=== PATIENT | male | born 1975 | race Caucasian/White ===

== ENCOUNTER 2018-11-28 08:56 | Emergency (ER) | payer OTHER ==
[2018-11-28] MEDS ORDERED: BABY ASPIRIN 81 MG CHEW PO ONE (09:10)
--- NOTE | 2018-11-28 09:17 | ERPHSYRPT ---
- History of Present Illness Time Seen by Provider: 11/28/18 09:12 Historian: patient Exam Limitations: no limitations Physician History: 43-year-old white male with history of high blood pressure Patient arrives with complaint of pain in his left upper chest symptoms off and on for a week not associated with shortness of breath no nausea did have some abdominal pain in the past no fevers no coughs. Pain is been intermittent for a week no pain today. Patient had had chest pain with syncope in the past approximately 2011 he had a normal cardiac catheter a normal tilt table's. Past medical history includes high blood pressure. Patient apparently with a very strong family history of cardiac problems. Past surgical history includes skin grafts on his left and ankle. Social history former tobacco use denies alcohol or illicit drug use. Timing/Duration: week(s) (1 week) Activities at Onset: none Quality: dullness Location: other (left upper chest Near shoulder) Chest Pain Radiation: no radiation Severity of Pain-Max: moderate Severity of Pain-Current: none Modifying Factors: Worsens With: antacids, breathing, coughing, defecating, eating, exertion, lying down, morphine, movement, nitroglycerin, oxygen, palpation, rest, aspirin, sitting up, change in position Associated Symptoms: abdominal pain (Some belly pain in the past), No nausea, No vomiting, No palpitations, No heartburn, No shortness of breath, No cough, No hurts to breathe, No diaphoresis, No chills, No fever, No fatigue, No weakness, No swelling/lump in chest, No syncope, No rash, No headache, No dizziness, No edema, No back pain Prior Chest Pain/Cardiac Workup: cardiac cath (Normal cardiac catheterization 2011) Nitro Today/Relief: no nitro taken today Aspirin Treatment Today: 81 mg x 4, provided by ED Allergies/Adverse Reactions: No Known Drug Allergies Allergy (Verified 11/28/18 09:24) Home Medications: No Reportable Medications [No Reported Medications] 11/28/18 [History] Hx Influenza Vaccination/Date Given: No Hx Pneumococcal Vaccination/Date Given: No - Review of Systems Constitutional: No Fever, No Chills Eyes: No Symptoms Ears, Nose, & Throat: No Symptoms Respiratory: No Cough, No Dyspnea Cardiac: Chest Pain (left upper chest pain), No Edema, No Palpitations, No Syncope, No Orthopnea, No PND Abdominal/Gastrointestinal: Abdominal Pain (abdominal pain some time during the last week, none now), No Nausea, No Vomiting, No Diarrhea, No Constipation, No Hematemesis, No Hematochezia ( FAR), No Melena, No Dysphagia, No Appetite Changes Genitourinary Symptoms: No Dysuria Musculoskeletal: No Back Pain, No Neck Pain Skin: No Rash Neurological: No Dizziness, No Focal Weakness, No Sensory Changes Psychological: No Symptoms (O no are all were note) Endocrine: No Symptoms (what I have to do my merlene) Immunological/Allergic: No Symptoms All Other Systems: Reviewed and Negative (physical have enough by ) - Past Medical History Pertinent Past Medical History: Yes Neurological History: Other Cardiac History: Hypertension Other Medical History: pt stated has passed out before when he was a child. pt stated it was very hot at that time. - Past Surgical History Past Surgical History: Yes Other Surgical History: skin graft to left ankle - Social History Smoking Status: Current every day smoker How long have you smoked: 20 Y Exposure to second hand smoke: Yes Drug Use: none Patient Lives Alone: No - Nursing Vital Signs Nursing Vital Signs: Initial Vital Signs Temperature 98.3 F 11/28/18 09:03 Pulse Rate 69 11/28/18 09:03 Respiratory Rate 16 11/28/18 09:03 Blood Pressure 155/101 11/28/18 09:03 O2 Sat by Pulse Oximetry 99 11/28/18 09:03 Pain Scale Pain Intensity 0 - Physical Exam General Appearance: no apparent distress, alert Eye Exam: PERRL/EOMI, eyes nml inspection Ears, Nose, Throat Exam: normal ENT inspection, moist mucous membranes Neck Exam: normal inspection, non-tender, supple, full range of motion Respiratory Exam: normal breath sounds, lungs clear, No respiratory distress Cardiovascular Exam: regular rate/rhythm, normal heart sounds, capillary refill <2 sec Gastrointestinal/Abdomen Exam: soft, No tenderness, No mass Back Exam: normal inspection, No CVA tenderness, No vertebral tenderness Extremity Exam: normal inspection, normal range of motion Neurologic Exam: alert, oriented x 3, cooperative, science interpreter II-XII nml as tested, normal mood/affect, sensation nml, No motor deficits Skin Exam: normal color, warm, dry SpO2 Interpretation: normal - Course Nursing assessment & vital signs reviewed: Yes EKG Interpreted by Me: RATE (68 bpm), Sinus Rhythm, NORMAL AXIS, Other (EKG: Sinus rhythm, 68 bpm, normal axis, no acute ST or T wave changes, no acute changes as compared to April 06, 2012) - Radiology Exams Chest X-ray Interpretation: Discussed w/ radiologist (stable, non acute chest) Ordered Tests: Active Orders 24 hr Category Date Time Status Personnel Counselor STAT Care 11/28/18 09:10 Active EKG-ER Only STAT Care 11/28/18 09:10 Active IV Insertion STAT Care 11/28/18 09:10 Active Pulse Oximetry (ED) STAT Care 11/28/18 09:10 Active CHEST 1 VIEW (PORTABLE) Stat Exams 11/28/18 09:10 Completed GALLBLADDER [US] Stat Exams 11/28/18 11:17 Completed AMYLASE Stat Lab 11/28/18 09:10 Completed CBC W DIFF Stat Lab 11/28/18 09:10 Completed CMP Stat Lab 11/28/18 09:10 Completed D-DIMER QUANTITATION Stat Lab 11/28/18 09:10 Completed LIPASE Stat Lab 11/28/18 09:10 Completed PROTIME WITH INR Stat Lab 11/28/18 09:10 Completed PTT Stat Lab 11/28/18 09:10 Completed TROPONIN Q3H Lab 11/28/18 09:10 Completed TROPONIN Q3H Lab 11/28/18 12:28 Completed TROPONIN Q3H Lab 11/28/18 15:15 Ordered TROPONIN Q3H Lab 11/28/18 18:15 Ordered TROPONIN Q3H Lab 11/28/18 21:15 Ordered Medication Summary Generic Name Dose Route Start Last Admin Trade Name Freq PRN Reason Stop Dose Admin Sodium Chloride 1,000 mls @ 100 mls/hr 11/28/18 12:30 11/28/18 12:29 Sodium Chloride 0.9% 1000 Ml IV 12/28/18 12:29 100 mls/hr .Q10H MIKE Administration Discontinued Medications Generic Name Dose Route Start Last Admin Trade Name Freq PRN Reason Stop Dose Admin Aspirin 324 mg 11/28/18 09:10 11/28/18 09:34 Baby Aspirin 81 Mg Chew PO 11/28/18 09:11 324 mg STAT ONE Administration Aspirin Confirm 11/28/18 09:33 Baby Aspirin 81 Mg Chew Administered 11/28/18 09:34 Dose 324 mg .ROUTE .STK-MED ONE Sodium Chloride 1,000 mls @ 999 mls/hr 11/28/18 10:42 11/28/18 10:47 Sodium Chloride 0.9% 1000 Ml IV 11/28/18 11:42 999 mls/hr .Q1H1M STA Administration Sodium Chloride Confirm 11/28/18 10:44 Sodium Chloride 0.9% 1000 Ml Administered 11/28/18 10:45 Dose 1,000 mls @ ud .ROUTE .STK-MED ONE Sodium Chloride Confirm 11/28/18 12:20 Sodium Chloride 0.9% 1000 Ml Administered 11/28/18 12:21 Dose 1,000 mls @ ud .ROUTE .STK-MED ONE Promethazine HCl 12.5 mg 11/28/18 11:50 11/28/18 12:23 Phenergan 25 Mg Inj IV 11/28/18 11:51 12.5 mg STAT ONE Administration Promethazine HCl Confirm 11/28/18 12:14 Phenergan 25 Mg Inj Administered 11/28/18 12:15 Dose 25 mg .ROUTE .STK-MED ONE Lab/Rad Data: Laboratory Result Diagrams 11/28/18 09:10 11/28/18 09:10 Laboratory Results 11/28/18 11/28/18 11/28/18 Range/Units 12:28 09:10 09:10 WBC (4.0-10.5) K/mm3 RBC (4.1-5.6) M/mm3 Hgb (12.5-18.0) gm/dl Hct (42-50) % MCV (78-100) fl MCH (26-32) pg MCHC (32-36) g/dl RDW (11.5-14.0) % Plt Count (150-450) K/mm3 MPV (6-9.5) fl Gran % (36.0-66.0) % Eos # (Auto) (0-0.5) Absolute Lymphs (auto) (1.0-4.6) Absolute Monos (auto) (0.0-1.3) Lymphocytes % (24.0-44.0) % Monocytes % (0.0-12.0) % Eosinophils % (0.00-5.0) % Basophils % (0.0-0.4) % Absolute Granulocytes (1.4-6.9) Basophils # (0-0.4) PT 10.2 (8.83-12.87) SECONDS INR 0.88 (0.8-3.0) APTT 28.2 (24.1-36.1) SECONDS D-Dimer 421 (215-500) ng/mL Sodium (137-145) mmol/L Potassium (3.5-5.1) mmol/L Chloride (98-107) mmol/L Carbon Dioxide (22-30) mmol/L Anion Gap (5-15) MEQ/L BUN (9-20) mg/dL Creatinine (0.66-1.25) mg/dL Estimated GFR ML/MIN Glucose (74-106) mg/dL Calcium (8.4-10.2) mg/dL Total Bilirubin (0.2-1.3) mg/dL AST (17-59) U/L ALT (0-50) U/L Alkaline Phosphatase (38-126) U/L Troponin I < 0.012 < 0.012 (0.000-0.034) ng/mL Serum Total Protein (6.3-8.2) g/dL Albumin (3.5-5.0) g/dL Amylase (30-110) U/L Lipase (23-300) U/L 11/28/18 11/28/18 Range/Units 09:10 09:10 WBC 7.1 (4.0-10.5) K/mm3 RBC 4.72 (4.1-5.6) M/mm3 Hgb 15.6 (12.5-18.0) gm/dl Hct 45.6 (42-50) % MCV 96.6 (78-100) fl MCH 33.1 H (26-32) pg MCHC 34.2 (32-36) g/dl RDW 13.3 (11.5-14.0) % Plt Count 147 L (150-450) K/mm3 MPV 10.3 H (6-9.5) fl Gran % 59.4 (36.0-66.0) % Eos # (Auto) 0.13 (0-0.5) Absolute Lymphs (auto) 2.12 (1.0-4.6) Absolute Monos (auto) 0.62 (0.0-1.3) Lymphocytes % 29.9 (24.0-44.0) % Monocytes % 8.8 (0.0-12.0) % Eosinophils % 1.8 (0.00-5.0) % Basophils % 0.1 (0.0-0.4) % Absolute Granulocytes 4.20 (1.4-6.9) Basophils # 0.01 (0-0.4) PT (8.83-12.87) SECONDS INR (0.8-3.0) APTT (24.1-36.1) SECONDS D-Dimer (215-500) ng/mL Sodium 140 (137-145) mmol/L Potassium 3.9 (3.5-5.1) mmol/L Chloride 107 (98-107) mmol/L Carbon Dioxide 24 (22-30) mmol/L Anion Gap 13.5 (5-15) MEQ/L BUN 15 (9-20) mg/dL Creatinine 0.88 (0.66-1.25) mg/dL Estimated GFR > 60.0 ML/MIN Glucose 84 (74-106) mg/dL Calcium 9.1 (8.4-10.2) mg/dL Total Bilirubin 0.60 (0.2-1.3) mg/dL AST 28 (17-59) U/L ALT 47 (0-50) U/L Alkaline Phosphatase 52 (38-126) U/L Troponin I (0.000-0.034) ng/mL Serum Total Protein 7.1 (6.3-8.2) g/dL Albumin 4.4 (3.5-5.0) g/dL Amylase 124 H (30-110) U/L Lipase 890 H (23-300) U/L - Progress Progress: improved Air Movement: fair Progress Note: 11/28/18 10:43 43-year-old white male arrives with complaint of intermittent pain in the left upper chest symptoms for a week described as dull he also states that he's been having some abdominal pain now states he's having some pain in the epigastric region. Patient with normal EKG troponin is within normal limits. Unfortunately amylase and lipase are elevated. I've recommended placing the patient on observation and obtaining gallbladder ultrasound and obtaining serial cardiac enzymes. Patient does have a very strong family history of cardiac problems. At this point in time patient is reluctant for observation will go ahead and begin IV normal saline. Will go ahead and order a gallbladder ultrasound. 11/28/18 11:45 Patient's gallbladder ultrasound shows nonvisualization of the pancreas, fatty liver, gallbladder sludge in an otherwise negative gallbladder sonogram. Patient states he has some mild tenderness in the epigastric region. I've discussed again with possibly coming in for observation patient is reluctant to do this and is thinking about this. Will go ahead and plan on getting repeat troponin 3 hours after last draw. 11/28/18 13:16 Patient's repeat troponin within normal limits. Patient does not want to be admitted I've offered this several times. Will plan to discharge patient. Patient will need to drink plenty of fluids clear fluids only 24-48 hours. Tylenol as needed for pain. He is to follow-up with his family doctor (anastasiya). He will need to have recheck secondary to chest pain for a week. As well as elevated lipase. As well as sludge in the gallbladder. - Departure Time of Disposition: 13:17 Departure Disposition: Home Clinical Impression: Abnormal gallbladder ultrasound Chest pain Qualifiers: Chest pain type: unspecified Qualified Code(s): R07.9 - Chest pain, unspecified Pancreatitis Qualifiers: Chronicity: acute Pancreatitis type: unspecified pancreatitis type Acute pancreatitis complication: no infection or necrosis Qualified Code(s): K85.90 - Acute pancreatitis without necrosis or infection, unspecified Condition: Fair Critical Care Time: No Referrals: DOCTOR,NO FAMILY [Primary Care Provider] - Additional Instructions: Return home. Plenty of fluids. Clear fluids only 24-48 hours if abdominal pain nausea or vomiting. Follow-up with your family doctor (list) Tylenol every 4 hours as needed for pain. do not eat fatty foods or consume alcohol. You will need to follow-up with the family doctor, rehabilitation psychologist, and/or surgeon. You have an abnormal gallbladder to have elevated lipase (enzyme of the pancreas ) You have been having chest pain for one week. Your initial cardiac enzymes are normal 2 your EKG was normal. Chest x-ray was normal. You will need further follow-up. Return for acute distress or for severe symptoms or for any problems.
[2018-11-28] MEDS ORDERED: BABY ASPIRIN 81 MG CHEW ONE (09:33)
--- NOTE | 2018-11-28 09:35 | XRAY ---
Indication: Chest pain. Comparison: November 29, 2017. Portable apical lordotic chest remains clear. Heart and mediastinal structures within normal limits. Bony thorax intact. Impression: Stable nonacute chest.
[2018-11-28 09:41] LABS: BASOPHIL % 0.1 % (0.0-0.4); Basophil (Absolute #) 0.01 (0-0.4); Eosinophil % 1.8 % (0.00-5.0); Eosinophil (Absolute #) 0.13 (0-0.5); Granulocytes % 59.4 % (36.0-66.0); Hematocrit 45.6 % (42-50); Hemoglobin 15.6 gm/dl (12.5-18.0); Lymphocyte (Absolute #) 2.12 (1.0-4.6); Lymphocytes % 29.9 % (24.0-44.0); Mean Cell Volume 96.6 fl (78-100); Mean Corpuscular Hemoglobin 33.1 pg (26-32); Mean Corpuscular Hgb Concent. 34.2 g/dl (32-36); Mean Platelet Volume 10.3 fl (6-9.5); Monocyte (Absolute #) 0.62 (0.0-1.3); Monocytes % 8.8 % (0.0-12.0); Platelet Count 147 K/mm3 (150-450); Red Blood Count 4.72 M/mm3 (4.1-5.6); Red Cell Distribution Width 13.3 % (11.5-14.0); White Blood Count 7.1 K/mm3 (4.0-10.5)
[2018-11-28 09:58] LABS: INR 0.88 (0.8-3.0); PROTIME 10.2 SECONDS (8.83-12.87)
[2018-11-28 10:00] LABS: PTT 28.2 SECONDS (24.1-36.1)
[2018-11-28 10:02] LABS: ALBUMIN 4.4 g/dL (3.5-5.0); ALKALINE PHOSPHATASE 52 U/L (38-126); AMYLASE 124 U/L (30-110); ANION GAP 13.5 MEQ/L (5-15); BLOOD UREA NITROGEN 15 mg/dL (9-20); CHLORIDE 107 mmol/L (98-107); Calcium 9.1 mg/dL (8.4-10.2); Carbon Dioxide 24 mmol/L (22-30); Creatinine 1 0.88 mg/dL (0.66-1.25); Glucose 84 mg/dL (74-106); LIPASE 890 U/L (23-300); Potassium 3.9 mmol/L (3.5-5.1); SGOT/AST 28 U/L (17-59); SGPT/ALT 47 U/L (0-50); SODIUM 140 mmol/L (137-145); Total Protein 7.1 g/dL (6.3-8.2)
[2018-11-28] MEDS ORDERED: Sodium Chloride 0.9% 1000 ML 1,000 ML IV STA (10:42)
[2018-11-28] MEDS ORDERED: Sodium Chloride 0.9% 1000 ML 1,000 ML ONE ×2 (10:44→12:20)
--- NOTE | 2018-11-28 11:37 | XRAY ---
Indication: Chest and epigastric pain. Two-dimensional gallbladder sonogram performed. Comparison: None Pancreas not well seen due to overlying bowel gas. Gallbladder normally distended with minimal sludge in the dependent portion. No gallstones, wall thickening, or pericholecystic fluid. Common bile duct measures 3.7 mm. No intrahepatic biliary distention. Fatty echogenic liver without focal solid/cystic mass or ascites. Right kidney measures 11.4 cm in length and appears sonographically normal. Impression: Nonvisualization of the pancreas. Fatty liver. Gallbladder sludge in a otherwise negative gallbladder sonogram.
[2018-11-28] MEDS ORDERED: Phenergan 25 MG INJ IV ONE (11:50)
[2018-11-28] MEDS ORDERED: Phenergan 25 MG INJ ONE (12:14)
[2018-11-28] MEDS ORDERED: Sodium Chloride 0.9% 1000 ML 1,000 ML IV SCH (12:30)
[2018-11-28 12:46] VITALS: BP 134/95; PULSE 69; O2SAT 96
== END 2018-11-28 13:39 | disposition home or self-care (01) ==
LOC: ED 08:56
DX: R93.2 Abnormal findings on diagnostic imaging of liver and biliary tract (principal); R07.9 Chest pain, unspecified; K85.90 Acute pancreatitis without necrosis or infection, unspecified; I10 Essential (primary) hypertension; Z72.0 Tobacco use
CPT/HCPCS: 36000; 36415; 71045; 76705; 80053; 82150; 83690; 84484; 85025; 85379; 85610; 85730; 93005; 93041; 96360; 96361; 96374; 99285; J2550; A9270-GY